=== PATIENT | male | born 1955 | race African-American/Black ===

== ENCOUNTER 2019-01-01 21:42 | Emergency (ER) | payer SELFPAY ==
[~2019-01-01] VITALS: Ht 185.4 cm; Wt 95.0 kg
[2019-01-01] MEDS ORDERED: LIDOCAINE 1%/EPI 1:100,000 10 ML VIAL IJ ONE (23:00)
[2019-01-01] MEDS ORDERED: LIDOCAINE HCL/EPINEPHRINE 1%-EPI 1:100,000 20 ML VIAL INFIL NR (23:15)
[2019-01-02 01:38] VITALS: BP 128/75
== END 2019-01-02 01:40 | disposition home or self-care (01) ==
LOC: ER 21:42
DX: S01.112A Laceration without foreign body of left eyelid and periocular area, initial encounter (principal); I10 Essential (primary) hypertension; W01.190A Fall on same level from slipping, tripping and stumbling with subsequent striking against furniture, initial encounter; Y93.89 Activity, other specified; Y92.098 Other place in other non-institutional residence as the place of occurrence of the external cause
CPT/HCPCS: 12011; 70450; 99284; J3490; Z7610